=== PATIENT | female | born 1985 | race Two or more races ===

== ENCOUNTER → 2016-09-21 | Outpatient (CLI) | payer OTHER ==
[2016-09-21 13:38] LABS: HIV 1&2 ANTIBODY SCREEN Nonreactive (Nonreactive); HIV-1 p24 ANTIGEN Nonreactive (Nonreactive)
== END | disposition home or self-care (01) ==
LOC: LAB 12:00
PROVIDERS: ATTEND Nurse Practitioner Obstetrics & Gynecology
DX: Z34.90 Encounter for supervision of normal pregnancy, unspecified, unspecified trimester (principal); Z11.3 Encounter for screening for infections with a predominantly sexual mode of transmission; Z3A.00 Weeks of gestation of pregnancy not specified
CPT/HCPCS: 36415; 81001; 85025; 86592; 86703; 86762; 86787; 86850; 86900; 87086; 87340; 87491; 87591; 87899; G0435

== ENCOUNTER 2016-12-03 01:21 | Inpatient (IN) | payer OTHER ==
[~2016-12-03] VITALS: Ht 157.5 cm; Wt 86.4 kg
[2016-12-03] MEDS ORDERED: OXYTOCIN 30U/ 0.9% NaCL 500ML 500 ML IV ONE (01:29)
[2016-12-03] MEDS ORDERED: D5%-LACTATED RINGERS 1,000 ML IV SCH (01:29)
[2016-12-03] MEDS ORDERED: LACTATED RINGERS 1,000 ML IV SCH (01:29)
[2016-12-03] MEDS ORDERED: ONDANSETRON 2MG/ML, 2ML IVPush PRN ×2 (01:30→16:00)
[2016-12-03] MEDS ORDERED: FENTANYL PF 100 MCG/2ML IVPush PRN ×2 (01:30→16:00)
[2016-12-03] MEDS ORDERED: TERBUTALINE 1 MG/ML, 1ML IVPush PRN ×2 (01:30→16:00)
[2016-12-03] MEDS ORDERED: SODIUM CITRATE/CITRIC ACID 30 ML UDC PO PRN ×2 (01:30→16:00)
[2016-12-03] MEDS ORDERED: ALUMINUM/MAG/SIMETHICONE 30 ML UDC PO PRN (01:30)
[2016-12-03] MEDS ORDERED: CALCIUM CARBONATE 500 MG TAB.CHEW PO PRN ×2 (01:30→16:00)
[2016-12-03] MEDS ORDERED: FENTANYL PF 100 MCG/2ML IV PRN ×2 (01:30→16:00)
[2016-12-03] MEDS ORDERED: METOCLOPRAMIDE 5 MG/ML, 2ML IVPush PRN (01:30)
[2016-12-03] MEDS ORDERED: LIDOCAINE 1%, 20ML ONE (01:38)
[2016-12-03] MEDS ORDERED: OXYTOCIN 30U/ 0.9% NaCL 500ML 500 ML ONE (01:39)
[2016-12-03] MEDS ORDERED: MISOPROSTOL 200 MCG TABLET ONE (01:39)
[2016-12-03] MEDS ORDERED: NEWBORN KIT ONE (01:39)
[2016-12-03] MEDS ORDERED: OXYTOCIN 30U/ 0.9% NaCL 500ML 500 ML IV SCH ×2 (02:30→16:00)
[2016-12-03] MEDS ORDERED: ACETAMINOPHEN 325 MG TABLET PO PRN ×2 (02:30→16:00)
[2016-12-03] MEDS ORDERED: DOCUSATE 100 MG CAPSULE PO PRN ×2 (02:30→16:00)
[2016-12-03] MEDS ORDERED: ONDANSETRON 2MG/ML, 2ML IV PRN ×2 (02:30→16:00)
[2016-12-03] MEDS ORDERED: IBUPROFEN 600 MG TABLET PO PRN ×2 (02:30→16:00)
[2016-12-03 05:40] VITALS: BP 111/68
[2016-12-03 07:45] VITALS: BP 123/75
[2016-12-03] MEDS ORDERED: PRENATAL VIT/IRON/FA 1 EACH TABLET PO SCH (09:00)
[2016-12-03 12:51] VITALS: BP 123/77
[2016-12-03 16:30] VITALS: BP 120/75
[2016-12-03 19:50] VITALS: BP 124/75
[2016-12-04] VITALS: BP 122/78
[2016-12-04 07:27] VITALS: BP 113/77
[2016-12-04] MEDS ORDERED: PRENATAL VIT/IRON/FA 1 EACH TABLET PO SCH (09:00)
[2016-12-04] MEDS ORDERED: IBUP-1222 PO (11:25)
[2016-12-04] MEDS ORDERED: DOCU-30 PO (11:26)
== END 2016-12-04 15:42 | disposition home or self-care (01) | DRG 775 ==
LOC: LDOP 01:21 → LDIP 01:32 → 2NW 04:31
PROVIDERS: ADMIT Obstetrics & Gynecology; ATTEND Obstetrics & Gynecology
PROC: 10E0XZZ Delivery of Products of Conception, External Approach (ICD-10-PCS; principal; 2016-12-03)
DX: O76 Abnormality in fetal heart rate and rhythm complicating labor and delivery (principal); Z37.0 Single live birth; Z3A.38 38 weeks gestation of pregnancy
CPT/HCPCS: 36415; 85025; 86850; 86900; J2590; J7120